=== PATIENT | male | born 1955 | race Two or more races ===

== ENCOUNTER 2019-06-19 20:04 | Emergency (ER) | payer BC ==
[~2019-06-19] VITALS: Ht 175.3 cm; Wt 79.4 kg
[2019-06-20] MEDS ORDERED: MAGNESIUM CITRATE SOLUTION 300 ML BTL PO ONE (01:00)
[2019-06-20 02:30] VITALS: BP 124/74
== END 2019-06-20 02:40 | disposition home or self-care (01) ==
LOC: ER 20:07
DX: R31.9 Hematuria, unspecified (principal); K59.00 Constipation, unspecified
CPT/HCPCS: 51702